=== PATIENT | male | born 1975 | race Two or more races ===

== ENCOUNTER 2023-07-17 12:01 | Emergency (ER) | payer OTHER ==
[~2023-07-17] VITALS: Ht 170.2 cm; Wt 86.2 kg
[2023-07-17 13:03] LABS: BASOPHILS % (AUTO) 0.6 % (0.0-2.0); EOSINOPHILS # (AUTO) 0.2 K/uL (0.0-0.7); EOSINOPHILS % (AUTO) 2.8 % (0.0-6.0); HEMATOCRIT 45 % (39-51); LYMPHOCYTES # (AUTO) 1.6 K/uL (0.8-4.8); LYMPHOCYTES % (AUTO) 25.3 % (20.0-44.0); MEAN CORPUSCULAR HEMOGLOBIN 29 PG (26.0-33.0); MEAN CORPUSCULAR HGB CONC 33 g/dl (31.0-36.0); MEAN CORPUSCULAR VOLUME 89 fL (80-96); MONOCYTES # (AUTO) 0.6 K/uL (0.1-1.30); NEUTROPHILS # (AUTO) 3.8 K/uL (1.8-8.9); NEUTROPHILS % (AUTO) 61.3 % (43.0-81.0); PLATELET COUNT (AUTO) 254 K/uL (150-450); RED BLOOD CELL COUNT(AUTO) 5.11 MIL/uL (4.5-6.0); RED CELL DISTRIBUTION WIDTH 13.3 % (11.5-15.0); WHITE BLOOD COUNT (AUTO) 6.2 K/uL (4.3-11.0)
[2023-07-17 13:04] LABS: APPEARANCE,URINE CLEAR (CLEAR); BILIRUBIN,URINE NEGATIVE (NEGATIVE); BLOOD, URINE NEGATIVE Ery/uL (NEGATIVE); COLOR,URINE YELLOW (YELLOW); KETONES,URINE NEGATIVE (NEGATIVE); LEUKOCYTE ESTERASE ,URINE NEGATIVE (NEGATIVE); NITRITE, URINE NEGATIVE (NEGATIVE); PH,URINE 5.5 (5.0-8.0); PROTEIN,URINE NEGATIVE (NEGATIVE); UGLUCOSE 3+ mg/dL (NEGATIVE); UROBILINOGEN,URINE 0.2 EU/dL (0.2)
[2023-07-17 13:11] LABS: CALCIUM, SERUM 9.8 mg/dL (8.5-10.1); CREATININE 0.9 mg/dL (0.6-1.3)
[2023-07-17 13:16] LABS: ALBUMIN 3.8 g/dL (3.4-5.0); BILIRUBIN,DIRECT 0.2 mg/dL (0.0-0.2); BILIRUBIN,TOTAL 0.7 mg/dL (0.2-1.0); TOTAL PROTEIN, SERUM 7.8 g/dL (6.4-8.2)
[2023-07-17] MEDS ORDERED: AMOX-427 PO (13:32)
[2023-07-17 13:37] LABS: ADD URINE CULTURE NO; BACTERIA,URINE None seen /HPF (None Seen); RBC,URINE NONE SEEN /HPF (0-2); SQUAMOUS EPITHELIAL CELL,UR Rare /HPF (None Seen); WBC,URINE 0-2 /HPF (0-3)
[2023-07-17 13:57] VITALS: BP 134/84; TEMP 99.2; O2SAT 97
== END 2023-07-17 13:58 | disposition home or self-care (01) ==
LOC: ER 12:07
DX: K57.92 Diverticulitis of intestine, part unspecified, without perforation or abscess without bleeding (principal); I10 Essential (primary) hypertension; Z79.899 Other long term (current) drug therapy
CPT/HCPCS: 36415; 80048-TC; 80076-TC; 81001; 83690-TC; 85025-TC

== ENCOUNTER 2023-11-20 08:14 | Emergency (ER) | payer OTHER ==
[~2023-11-20] VITALS: Ht 170.2 cm; Wt 99.8 kg
[~2023-11-20 08:14] MED LIST: AMOX-427 PO
[2023-11-20] MEDS ORDERED: CETI-90 PO (09:17)
[2023-11-20 09:33] VITALS: BP 140/98; TEMP 98.3; O2SAT 96
== END 2023-11-20 09:33 | disposition home or self-care (01) ==
LOC: ER 08:16
DX: R09.81 Nasal congestion (principal); I10 Essential (primary) hypertension; Z79.899 Other long term (current) drug therapy

== ENCOUNTER 2023-12-28 08:15 | Emergency (ER) | payer OTHER ==
[~2023-12-28] VITALS: Ht 170.2 cm; Wt 97.5 kg
[~2023-12-28 08:15] MED LIST changes: +CETI-90 PO
[2023-12-28 08:25] VITALS: BP 111/70; TEMP 98.4
[2023-12-28] MEDS ORDERED: BENZONATATE 100 MG CAPSULE PO ONE (08:45)
[2023-12-28] MEDS: BENZONATATE 100 MG CAPSULE PO ONE (08:48)
[2023-12-28] MEDS ORDERED: BENZ-13 PO (09:28)
[2023-12-28 09:56] VITALS: O2SAT 99
== END 2023-12-28 09:50 | disposition home or self-care (01) ==
LOC: ER 08:18
DX: R05.9 Cough, unspecified (principal); I10 Essential (primary) hypertension; E11.9 Type 2 diabetes mellitus without complications; Z20.822 Contact with and (suspected) exposure to COVID-19
CPT/HCPCS: 71045-TC

== ENCOUNTER 2024-01-30 17:47 | Emergency (ER) | payer OTHER ==
[~2024-01-30] VITALS: Ht 170.2 cm; Wt 97.5 kg
[~2024-01-30 17:47] MED LIST changes: +BENZ-13 PO
[2024-01-30 18:33] LABS: APPEARANCE,URINE Clear (CLEAR); BILIRUBIN,URINE Negative (NEGATIVE); BLOOD, URINE Negative Ery/uL (NEGATIVE); COLOR,URINE YELLOW (YELLOW); KETONES,URINE Negative (NEGATIVE); LEUKOCYTE ESTERASE ,URINE Negative (NEGATIVE); NITRITE, URINE Negative (NEGATIVE); PH,URINE 6.5 (5.0-8.0); PROTEIN,URINE Negative (NEGATIVE); UGLUCOSE >=1000 mg/dL (NEGATIVE); UROBILINOGEN,URINE 0.2 EU/dL (0.2)
[2024-01-30 18:37] LABS: BASOPHILS % (AUTO) 0.7 % (0.0-2.0); EOSINOPHILS # (AUTO) 0.1 K/uL (0.0-0.7); EOSINOPHILS % (AUTO) 2.6 % (0.0-6.0); HEMATOCRIT 44 % (39-51); HEMOGLOBIN 14.9 g/dL (13.5-17.5); MEAN CORPUSCULAR HEMOGLOBIN 30 PG (26.0-33.0); MEAN CORPUSCULAR HGB CONC 34 g/dl (31.0-36.0); MEAN CORPUSCULAR VOLUME 90 fL (80-96); MONOCYTES # (AUTO) 0.5 K/uL (0.1-1.30); MONOCYTES % (AUTO) 9.3 % (2.0-12.0); NEUTROPHILS # (AUTO) 3.5 K/uL (1.8-8.9); NEUTROPHILS % (AUTO) 68.4 % (43.0-81.0); PLATELET COUNT (AUTO) 226 K/uL (150-450); RED BLOOD CELL COUNT(AUTO) 4.88 MIL/uL (4.5-6.0); RED CELL DISTRIBUTION WIDTH 12.9 % (11.5-15.0); WHITE BLOOD COUNT (AUTO) 5.1 K/uL (4.3-11.0)
[2024-01-30 18:43] LABS: CALCIUM, SERUM 8.9 mg/dL (8.5-10.1); CREATININE 0.8 mg/dL (0.6-1.3)
[2024-01-30 18:48] LABS: INR 0.9 (0.91-1.10); PARTIAL THROMBOPLASTIN TIME 24.5 SEC (24.3-34.3); PROTHROMBIN TIME 9.3 SECS (9.2-11.1)
[2024-01-30 18:50] LABS: ALBUMIN 3.7 g/dL (3.4-5.0); BILIRUBIN,DIRECT 0.2 mg/dL (0.0-0.2); BILIRUBIN,TOTAL 0.7 mg/dL (0.2-1.0); TOTAL PROTEIN, SERUM 7.7 g/dL (6.4-8.2)
[2024-01-30 18:58] LABS: ADD URINE CULTURE NO; BACTERIA,URINE None seen /HPF (None Seen); RBC,URINE NONE SEEN /HPF (0-2); SQUAMOUS EPITHELIAL CELL,UR Rare /HPF (None Seen); WBC,URINE 0-2 /HPF (0-3)
[2024-01-30] MEDS ORDERED: ACET-2605 PO (19:40)
[2024-01-30] MEDS ORDERED: AMOX-430 PO (19:40)
[2024-01-30 19:48] VITALS: BP 130/80; TEMP 209.1; O2SAT 100
== END 2024-01-30 19:52 | disposition home or self-care (01) ==
LOC: ER 17:52
DX: K57.32 Diverticulitis of large intestine without perforation or abscess without bleeding (principal); I10 Essential (primary) hypertension; Z79.899 Other long term (current) drug therapy
CPT/HCPCS: 36415; 80048-TC; 80076-TC; 81001; 83690-TC; 85025-TC; 85730-TC

== ENCOUNTER 2024-04-01 15:31 | Emergency (ER) | payer OTHER ==
[~2024-04-01] VITALS: Ht 170.2 cm; Wt 97.5 kg
[~2024-04-01 15:31] MED LIST changes: +ACET-2605 PO; +AMOX-430 PO
[2024-04-01 15:40] VITALS: BP 138/90; TEMP 98.5
[2024-04-01] MEDS ORDERED: PRED20TA PO (16:47)
[2024-04-01] MEDS ORDERED: DIPH25CA83 PO (16:47)
[2024-04-01] MEDS ORDERED: FAMO20TA80 PO (16:47)
[2024-04-01] MEDS ORDERED: predniSONE 20 MG TABLET ONE (16:55)
[2024-04-01] MEDS ORDERED: diphenhydrAMINE HCL ELIX 25 MG/10 ML UDC ONE (16:55)
[2024-04-01] MEDS ORDERED: FAMOTIDINE (20 MG) 20 MG TABLET ONE (16:56)
[2024-04-01] MEDS: predniSONE 20 MG TABLET PO ONE (16:59)
[2024-04-01] MEDS: DIPHENHYDRAMINE HCL 12.5 MG/5 ML UDC PO ONE (16:59)
[2024-04-01] MEDS: FAMOTIDINE (20 MG) 20 MG TABLET PO ONE (16:59)
[2024-04-01 17:09] VITALS: O2SAT 98
== END 2024-04-01 17:09 | disposition home or self-care (01) ==
LOC: ER 15:31
DX: L53.8 Other specified erythematous conditions (principal); R21 Rash and other nonspecific skin eruption; I10 Essential (primary) hypertension
CPT/HCPCS: 99284; Q0163 ×2; J7512

== ENCOUNTER 2024-04-04 18:02 | Emergency (ER) | payer OTHER ==
[~2024-04-04] VITALS: Ht 175.3 cm; Wt 83.9 kg
[~2024-04-04 18:02] MED LIST changes: +DIPH25CA83 PO; +FAMO20TA80 PO; +PRED20TA PO
[2024-04-04] MEDS ORDERED: HYDR28.318 TP (19:09)
[2024-04-04 20:33] VITALS: BP 151/86; TEMP 98.5; O2SAT 98
== END 2024-04-04 20:33 | disposition home or self-care (01) ==
LOC: ER 18:11
DX: B01.9 Varicella without complication (principal); I10 Essential (primary) hypertension

== ENCOUNTER 2024-04-19 07:51 | Emergency (ER) | payer OTHER ==
[~2024-04-19] VITALS: Ht 170.2 cm; Wt 97.5 kg
[~2024-04-19 07:51] MED LIST changes: +HYDR28.318 TP
[2024-04-19] MEDS ORDERED: HYDR453.4 TP (09:18)
[2024-04-19 09:33] VITALS: BP 126/69; TEMP 97.8; O2SAT 98
== END 2024-04-19 09:33 | disposition home or self-care (01) ==
LOC: ER 07:55
DX: R21 Rash and other nonspecific skin eruption (principal); I10 Essential (primary) hypertension

== ENCOUNTER 2024-12-07 08:08 | Emergency (ER) | payer OTHER ==
[~2024-12-07] VITALS: Ht 170.2 cm; Wt 86.2 kg
[~2024-12-07 08:08] MED LIST changes: +HYDR453.4 TP
[2024-12-07 08:20] VITALS: BP 18/94; TEMP 98.2
[2024-12-07] MEDS ORDERED: KETOROLAC TROMETHAMINE INJ 30 MG/ML VIAL ONE (08:30)
[2024-12-07] MEDS ORDERED: CYCLOBENZAPRINE 10 MG TABLET ONE (08:30)
[2024-12-07] MEDS: KETOROLAC TROMETHAMINE INJ 30 MG/ML VIAL IM ONE (08:35)
[2024-12-07] MEDS: CYCLOBENZAPRINE 10 MG TABLET PO ONE (08:36)
[2024-12-07] MEDS ORDERED: CYCL5TAB PO (08:44)
[2024-12-07 08:50] VITALS: O2SAT 97
== END 2024-12-07 08:50 | disposition home or self-care (01) ==
LOC: ER 08:15
DX: M54.50 Low back pain, unspecified (principal); I10 Essential (primary) hypertension; Z79.52 Long term (current) use of systemic steroids
CPT/HCPCS: 99283; 96372; J1885